=== PATIENT | male | born 1980 | race Asian ===

== ENCOUNTER 2018-06-30 13:56 | Emergency (ER) | payer MEDICAID ==
[~2018-06-30] VITALS: Ht 175.3 cm; Wt 68.0 kg
[2018-06-30 14:25] VITALS: BP 138/90
[2018-06-30] MEDS ORDERED: IPRATROPIUM BROM 0.5 MG/2.5ML INH SOL NEB ONE (15:00)
[2018-06-30] MEDS ORDERED: ALBUTEROL SULF 2.5 MG/0.5ML(0.5%) NEB SOLN NEB ONE (15:00)
== END 2018-06-30 15:24 | disposition home or self-care (01) ==
LOC: ER 13:56
DX: J45.901 Unspecified asthma with (acute) exacerbation (principal); Z76.0 Encounter for issue of repeat prescription
CPT/HCPCS: 94640; 99283; J7611; J7644